=== PATIENT | male | born 1990 | race African-American/Black ===

== ENCOUNTER 2023-05-26 10:49 | Emergency (ER) | payer MEDICAID ==
[~2023-05-26] VITALS: Ht 170.2 cm; Wt 64.0 kg
[2023-05-26 11:15] VITALS: BP 108/46; PULSE 80; RESP 15; TEMP 98.4; O2SAT 100
[2023-05-26] MEDS ORDERED: KETOROLAC 30MG/ML VIAL IV STA (13:08)
== END 2023-05-26 14:07 | disposition home or self-care (01) ==
LOC: ER 10:49
DX: R51.9 Headache, unspecified (principal); R07.89 Other chest pain; M54.2 Cervicalgia; V49.9XXA Car occupant (driver) (passenger) injured in unspecified traffic accident, initial encounter; Y93.89 Activity, other specified; Y92.89 Other specified places as the place of occurrence of the external cause; Y99.8 Other external cause status
CPT/HCPCS: 71045; 96374; 99283; J1885; Z7610